=== PATIENT | female | born 1955 | race Caucasian/White ===

== ENCOUNTER → 2018-01-24 12:43 | Outpatient (CLI) | payer MEDICARE, SELFPAY ==
--- NOTE | 2018-01-24 12:45 | BI_ITS ---
MAMMOGRAPHY - BILATERAL SCREENING REASON FOR EXAM: Female, 62 years old. Routine annual screening examination. PERTINENT HISTORY: Personal history of breast cancer. Prior bilateral mastectomy. Sister with breast cancer. Grandmother with breast cancer. TECHNIQUE: Digital bilateral breast delmis (3D mammographic acquisition) in the CC and MLO projections. 2-D mediolateral oblique (MLO) and craniocaudad (CC) views of both breasts were obtained. CAD: Full Field Digital Mammography with Computer Added Detection was performed. COMPARISON: Comparison is made with prior study dated December 30, 2015. FINDINGS: Breast Composition: The breasts are almost entirely fatty. There are no dominant masses or suspicious calcifications. Stable deformity of both breasts with surgical clips seen in the upper axillary region of the right breast. No new mass lesion or cluster microcalcification is present. No other significant abnormalities are identified. There has been no significant change since the prior study. BI/SCREENING MAMM (CAD), BILAT IMPRESSION: Stable bilateral screening mammogram. Yearly follow-up mammogram recommended. (A) ASSESSMENT CATEGORY: BIRADS Category 2: Benign. A letter regarding these results will be sent to the patient by the facility within 30 days. Approximately 10% of breast cancers are not detected by mammography. A normal mammogram should not delay biopsy of a clinically suspicious abnormality. [id number] Electronically Signed: Home Bergman MD at 15:25 EDT Tel [phone], Service support ,
== END ==
PROVIDERS: Family Provider Internal Medicine; PCP Internal Medicine; Visit Provider Internal Medicine
DX: Z12.31 Encounter for screening mammogram for malignant neoplasm of breast (principal)
CPT/HCPCS: 77063; 77067

== ENCOUNTER → 2020-07-01 12:48 | Outpatient (CLI) | payer MEDICARE, SELFPAY ==
--- NOTE | 2020-07-01 13:00 | BI_ITS ---
MAMMOGRAPHY - BILATERAL SCREENING 3-D TOMOSYNTHESIS REASON FOR EXAM: Female, 65 years old. SCREENING PERTINENT HISTORY: No significant family history. TECHNIQUE: 2-D mammograms and 3-D Tomosynthesis of the breast (s) were performed. CAD was performed. COMPARISON: None. FINDINGS: The breast composition is almost entirely fatty. The patient is status post bilateral mastectomy. BI/SCRN MAMM (CAD)W/LOWELL BILAT IMPRESSION: No mammographic signs of malignancy. Routine yearly mammograms recommended. ASSESSMENT CATEGORY: BIRADS Category 2: Benign. A letter regarding these results will be sent to the patient by the facility within 30 days. FOLLOW UP RECOMMENDATION: Yearly follow up mammogram recommended. (A) Approximately 10% of breast cancers are not detected by mammography. A normal mammogram should not delay biopsy of a clinically suspicious abnormality. Electronically Signed: Colby Garcia MD at 15:17 EDT Tel , Service support ,
== END ==
PROVIDERS: PCP Internal Medicine; Referring Provider Internal Medicine; Visit Provider Internal Medicine
DX: Z12.31 Encounter for screening mammogram for malignant neoplasm of breast (principal)
CPT/HCPCS: 77063; 77067

== ENCOUNTER → 2021-02-25 | Outpatient (CLI) | payer MEDICARE, SELFPAY ==
--- NOTE | 2021-02-25 | LES_PTH ---
PATIENT: ABRAHAM JACKSON LOC: [facility] U#:[id number] AGE/SX: 65/F ROOM: RE02/25/[address]: Dr. Clair Mccormick DPM : 1955 BED: DIS: 02/25/2021 SPEC #: [id number] RECD: 02/25/21 17:45 STATUS: NELSY REAidan #: [id number] ANAI: 02/25/21 00:[address]: Clair Mccormick DEPT: SURGICAL PATHOLOGY RECD BY: Zunilda Martin ENTERED: 02/26/21 09:37 SP TYPE: Lesion OTHR DR: Dr. Austyn Lozano MD Tissues: Skin of toe, NOS Procedures: Surgery Specimen Level IV HEADER OPERATION: Not noted PRE-OP DIAGNOSIS: Left second toenail lesion TISSUE SUBMITTED: Left second toenail lesion MICROSCOPIC DIAGNOSIS Left second toenail lesion, biopsy: Verrucous lesion, consistent with verruca vulgaris. See comment. SJ:justo 02/27/2021 COMMENT Clinical correlation and appropriate follow up are necessary. MICROSCOPIC DESCRIPTION Slides are reviewed. GROSS DESCRIPTION Received in fixative is one container labeled with the patient's name and designated left second toenail. The specimen consists of a portion of toe with brownish-black discoloration measuring 1 x 0.7 x 0.3 cm. The specimen is serially sectioned and submitted entirely in one cassette. / JOHANNA:justo 02/26/21 TC:1 CPT: 47033
== END | disposition home or self-care (01) ==
LOC: LABSPEC 02-26 08:09
PROVIDERS: PCP Internal Medicine; Visit Provider Podiatrist
DX: L60.3 Nail dystrophy (principal)
CPT/HCPCS: 88305

== ENCOUNTER → 2021-12-08 | Outpatient (CLI) | payer MEDICARE, SELFPAY ==
[2021-12-08 13:31] LABS: EXAGEN MAILED SPECIMEN
[2021-12-08 13:35] LABS: Color, Urine Straw (Yellow); Glucose, Dipstick Normal (Normal); Ketone-Dipstick Negative (Negative); Leukocyte Esterase-Dipstick Negative /ul (Negative); Nitrite-Dipstick Negative (Negative); Occult Blood-Urine 10 /ul (Negative); Protein-Dipstick Negative (Negative); Urine Bilirubin Dipstick Negative (Negative); Urine Clarity Clear (Clear); Urine Urobilinogen Normal (Normal)
[2021-12-08 13:36] LABS: Erythrocyte Sedimentation Rate 10 mm/hr (0-30)
[2021-12-08 13:37] LABS: Absolute Lymphocyte Count 1.19 X10^3/uL (0.83-4.51); Absolute Neutrophil Count 3.4 X10^3/uL (2.0-7.7); Basophil# 0.04 X10^3/uL; Basophil% 0.8 % (0-1); Eosinophil# 0.07 X10^3/uL; Eosinophils% 1.4 % (0-5); Hematocrit 37.9 % (37-47); Hemoglobin 12.2 g/dL (12.0-15.0); Lymphocyte # 1.19 X10^3/ul (0.83-4.51); Lymphocyte % 23.4 % (19-41); Mean Corp Hgb Conc 32.2 g/dL (32-36); Mean Corpuscular Volume 102.4 fL (81-99); Monocyte# 0.32 X10^3/uL; Monocyte% 6.3 % (0-10); NRBC Flagged by Analyzer 0 % (0-5); Neutrophil % 66.7 % (47-70); Platelet Count 228 K/mm3 (150-450); RBC Distribution Width CV 12.2 % (11.6-14.6); RBC Distribution Width SD 46.3 fl (35.1-43.9); White Blood Count 5.1 K/mm3 (4.4-11.0)
[2021-12-08 13:46] LABS: International Normalized Ratio 0.9; Partial Thromboplast Time 23.2 Seconds (24.1-36.2); Prothrombin Time (Protime)PT. 12.2 SECONDS (11.7-14.9)
[2021-12-08 13:49] LABS: Protein, Urine (Random) < 6.0 mg/dL (<11.9)
[2021-12-08 14:05] LABS: AST(SGOT) 15 U/L (15-37); Alanine Aminotransfer ALT/SGPT 25 U/L (13-56); Albumin, Serum 3.4 g/dL (3.2-5.0); Alkaline Phosphatase 109 U/L (45-117); Anion Gap 5 (5-15); BUN 26 mg/dL (7-18); BUN/Creat Ratio 29.1 RATIO (10-20); Calcium,Total 9.3 mg/dL (8.5-10.1); Chloride 110 mmol/L (98-107); Creatinine, Serum 0.89 mg/dL (0.55-1.02); EST Glomerular Filtration Rate 67 mL/min (>60); Est Glom Filt Rate - Afr Amer 81 mL/min (>60); Globulin 3.4 g/dL (2.2-4.2); Glucose 97 mg/dL (74-106); Potassium 4.2 mmol/L (3.5-5.1); Protein, Total 6.8 g/dL (6.4-8.2); Sodium Level 141 mmol/L (136-145)
[2021-12-08 15:51] LABS: Hepatitis B Surface Antibody Non-Reactive; Hepatitis B Surface Antigen Non-Reactive (Nonreactive); Hepatitis C Antibody Non-Reactive (Nonreactive)
[2021-12-11 13:08] LABS: Dilute Prothrombin Time (dPT) 31.1 sec (0.0-47.6); Dilute Russell Viper Venom 33.7 sec (0.0-47.0); Hexagonal Phase Phospholipid 4 sec (0-11); PTT-LA 27.4 sec (0.0-51.9); Thrombin Time 17.1 sec (0.0-23.0); dPT Confirm Ratio 1.09 Ratio (0.00-1.34)
[2021-12-11 16:09] LABS: Interpretation Comment: (.)
== END | disposition home or self-care (01) ==
PROVIDERS: PCP Internal Medicine; Referring Provider Internal Medicine Rheumatology; Visit Provider Internal Medicine Rheumatology
DX: M06.4 Inflammatory polyarthropathy (principal); R76.8 Other specified abnormal immunological findings in serum; M79.7 Fibromyalgia; M17.0 Bilateral primary osteoarthritis of knee; J45.909 Unspecified asthma, uncomplicated; G43.909 Migraine, unspecified, not intractable, without status migrainosus; Z87.11 Personal history of peptic ulcer disease; E03.9 Hypothyroidism, unspecified; F32.A Depression, unspecified; I83.93 Asymptomatic varicose veins of bilateral lower extremities
CPT/HCPCS: 36415; 80053; 81002; 82570; 84156; 85025; 85598; 85610; 85652; 85730; 86140; 86706; 86803; 87340

== ENCOUNTER → 2022-06-23 | Outpatient (CLI) | payer MEDICARE, OTHER, SELFPAY ==
--- NOTE | 2022-06-23 14:50 | RAD_ITS ---
STUDY: X-RAY - CERVICAL SPINE REASON FOR EXAM: Female, 67 years old. Pain. Evaluate for arthritis. TECHNIQUE: view(s) of the cervical spine were obtained. COMPARISON: None FINDINGS: Osteopenia. Normal anterior atlantoaxial articulation. Normal odontoid process. Normal cervical lordosis. Diffuse uncovertebral and facet sclerosis. Minimal intervertebral disc space narrowing at C4-5 and C5-6. No bony neural foraminal encroachment. Normal soft tissues. RAD/Cerv Spine 4 or 5 Views IMPRESSION: Osteopenia with mild diffuse cervical spondylosis. No acute abnormality. Electronically Signed: Beau Gentile, at 13:42 EDT ,
== END | disposition home or self-care (01) ==
PROVIDERS: PCP Internal Medicine; Referring Provider Internal Medicine Rheumatology; Visit Provider Internal Medicine Rheumatology
DX: M06.4 Inflammatory polyarthropathy (principal); Z79.899 Other long term (current) drug therapy; R76.8 Other specified abnormal immunological findings in serum; M79.7 Fibromyalgia; M47.892 Other spondylosis, cervical region; M19.90 Unspecified osteoarthritis, unspecified site
CPT/HCPCS: 72050

== ENCOUNTER → 2023-07-27 | Outpatient (CLI) | payer MEDICARE, OTHER, SELFPAY ==
--- NOTE | 2023-07-27 13:00 | ADUL_ITS ---
Reason For Study: PVD Left Velocities Ext Iliac Artery, dist = 147.4 cm./sec. Common Femoral Artery, mid = 119 cm./sec. Supf. Femoral Artery, prox = 124.9 cm./sec. Supf. Femoral Artery, mid = 122.7 cm./sec. Supf. Femoral Artery, dist = 74.4 cm./sec. Profunda Femoral Artery = 82 cm./sec. Popliteal Artery, mid = 71.1 cm./sec. Post. Tibial Artery, prox = 97.7 cm./sec. Post Tibial Artery, mid = 170 cm./sec. Post Tibial Artery, dist. = 131.1 cm./sec. Peroneal Artery, prox = 70.8 cm./sec. Peroneal Artery, mid = 139.9 cm./sec. Peroneal Artery,dist. = 105.2 cm./sec. Ant.Tibial Artery, prox = 55.6 cm./sec. Ant Tibial Artery, mid = 45.9 cm./sec. Ant. Tibial Artery, distal = 90.4 cm./sec. Procedure Exam performed in department. /US Art Duplex Unilat Lower Ext Interpretation Summary Left lower extremity arteries patent with normal velocities and no evidence of stenosis. Ordering Physician: Gina Perez Referring Physician: Austyn Lozano Performed By: Rosamaria Ingram RVT and Student
--- NOTE | 2023-07-27 13:00 | ART_ITS ---
Reason For Study: PVD Procedure A bilateral lower extremity continuous wave Doppler with analog waveform analysis and ankle brachial indexes. Left Segmental Pressures Left brachial= 148mmHg. Left posterior tibial artery = 182mmHg. Left dorsalis pedis artery = 166mmHg. The left posterior tibial artery waveforms are triphasic. The left dorsalis pedis waveforms are triphasic. Right Segmental Pressures Right brachial= 151mmHg. Right posterior tibial artery = 172mmHg. Right dorsalis pedis artery = 178mmHg. The right posterior tibial artery waveforms are triphasic. The right dorsalis pedis waveforms are triphasic. Indices The right ankle brachial index by the dorsalis pedis is 1.18. The right ankle brachial index by the posterior tibial artery is 1.14. The left ankle brachial index by the dorsalis pedis is 1.10. The left ankle brachial index by the posterior tibial artery is 1.21. VL/Ankle Brachial Index Interpretation Summary Right BEV 1.18, normal. Doppler/PVR waveforms of the right ankle normal at rest . Left BEV 1.21, normal. Doppler/PVR waveforms of the left ankle normal at rest. Ordering Physician: Gina Perez Referring Physician: Austyn Lozano Performed By: Rosamaria Ingram RVT and Student
--- NOTE | 2023-07-27 13:00 | VDLE_ITS ---
Reason For Study: Bilateral leg pain RIGHT LEFT CFV is compressible, spontaneous, phasic, CFV is compressible, spontaneous, phasic, competent and demonstrates normal competent, and demonstrates normal augmentation. augmentation. FV is compressible, spontaneous, phasic, FV is compressible, spontaneous, phasic, competent and demonstrates normal competent and demonstrates normal augmentation. augmentation. POP V is compressible, spontaneous, phasic, POP V is compressible, spontaneous, phasic, competent and demonstrates normal competent and demonstrates normal augmentation. augmentation. T/P Trunk is compressible. T/P Trunk is compressible. PTV is compressible. PTV is compressible. RT PerV is compressible. LT PerV is compressible. SFJ is competent and measures 0.59 x 0.62 cm. GSV and SSV previous EVLA. GSV proximal thigh measures 0.34 x 0.32 cm. GSV at knee measures 0.34 x 0.30 cm. GSV INCOMPETENT throughout for greater than 0.5 seconds. ASV at knee is INCOMPETENT for greater than 0.5 seconds and measures 0.20 x 0.19 cm. SSV proximal calf is competent and measures 0.30 x 0.29 cm. Procedure This is a venous duplex using B-mode, color flow and spectral Doppler. Exam performed in department. Patient was scanned in reverse Trendelenburg position during reflux assessment. VL/Venous Duplex US - Sudheer Extrem Interpretation Summary Deep veins of the bilateral lower extremities are patent and compressible segme ntally. There is no evidence of bilateral lower extremity deep vein thrombosis. The right great sap henous vein appears patent and compressible segmentally. Positive for reflux in the right great saphenous vein throughout, accessory sap henous vein at knee. Ordering Physician: Gina Perez Referring Physician: Austyn Lozano Performed By: Rosamaria Ingram RVT and Student
== END | disposition home or self-care (01) ==
PROVIDERS: PCP Internal Medicine; Referring Provider Physician Assistant; Visit Provider Physician Assistant
DX: I73.9 Peripheral vascular disease, unspecified (principal); I87.2 Venous insufficiency (chronic) (peripheral); M79.606 Pain in leg, unspecified; I83.813 Varicose veins of bilateral lower extremities with pain
CPT/HCPCS: 93922; 93926; 93970

== ENCOUNTER → 2024-12-04 | Outpatient (CLI) | payer OTHER, MEDICARE, SELFPAY ==
[2024-12-04 16:17] LABS: Hematocrit 36.0 % (37-47); Hemoglobin 11.8 g/dL (12.0-15.0); Immature Granulocytes Count 0.020 X10^3/uL (0.0-0.0); Mean Corp Hgb Conc 32.8 g/dL (32-36); Mean Corpuscular Volume 96.5 fL (81-99); Mean Platelet Vol. 10.2 fl (6.2-12.0); NRBC Flagged by Analyzer 0 % (0-5); Platelet Count 192 K/mm3 (150-450); RBC Distribution Width CV 12.8 % (11.6-14.6); RBC Distribution Width SD 45.7 fl (35.1-43.9); Red Blood Count 3.73 M/mm3 (4.2-5.4); White Blood Count 4.4 K/mm3 (4.4-11.0)
[2024-12-04 16:54] LABS: AST(SGOT) 26 U/L (<=31); Alanine Aminotransfer ALT/SGPT 22 U/L (<=34); Albumin, Serum 4.3 g/dL (3.4-4.8); Alkaline Phosphatase 112 U/L (35-104); Anion Gap 11 (5-15); BUN 25 mg/dL (4-19); BUN/Creat Ratio 33.8 RATIO (10-20); Calcium,Total 9.2 mg/dL (7.6-11.0); Carbon Dioxide 24.1 mmol/L (21.0-32.0); Chloride 106 mmol/L (98-108); Globulin 2.4 g/dL (2.2-4.2); Glucose 102 mg/dL (70-99); Hepatitis C Antibody Nonreactive (Nonreactive); Potassium 4.1 mmol/L (3.3-5.1); Vitamin D,25 Hydroxy 45.8 ng/mL (30-100)
[2024-12-04 17:08] LABS: Cholesterol 173 mg/dL (<=200); Low Density Lipoprotein Calc. 58 mg/dL; Triglycerides 52 mg/dL; Very Low Density Lipoprotein 10 mg/dL (5-40); cholesterol:hdl ratio screen 1.65
[2024-12-04 23:47] LABS: Xtra Tube Kwok EXTRA TUBE
== END | disposition home or self-care (01) ==
LOC: POLAB3 15:43
PROVIDERS: PCP Family Medicine Geriatric Medicine; Visit Provider Family Medicine Geriatric Medicine
DX: E03.9 Hypothyroidism, unspecified (principal); Z13.89 Encounter for screening for other disorder; E55.9 Vitamin D deficiency, unspecified
CPT/HCPCS: 36415; 80053; 80061; 82306; 84443; 85025; 86803